=== PATIENT | female | born 1985 | race Caucasian/White ===

== ENCOUNTER 2017-02-18 13:14 | Emergency (ER) | payer OTHER ==
[2017-02-18 14:11] VITALS: BP 123/78
--- NOTE | 2017-02-18 14:31 | UC ---
Skin Complaint HPI - HPI Summary HPI Summary: red itchy rash on both arms began about 1 week ago---no known new contacts - History of Current Complaint Chief Complaint: [facility] Time Seen by Provider: 02/18/17 14:21 Stated Complaint: SKIN COMPLAINT Hx Obtained From: Patient Hx Last Menstrual Period: 02/12/17 ?: No Onset/Duration: Sudden Onset, Lasting Weeks - 1, Still Present Timing: Constant Onset Severity: Mild Current Severity: Mild Location: Discrete - both forearms, began in anticub Character: Pruritus, Redness Aggravating: Nothing Alleviating: OTC Meds - benadryl cream Associated Signs & Symptoms: Positive: Negative - Allergy/Home Medications Allergies/Adverse Reactions: Allergies Allergy/AdvReac Type Severity Reaction Status Date / Time No Known Allergies Allergy Verified 02/18/17 14:04 Home Medications: Home Medications Citalopram TAB* [Celexa TAB*] 10 mg PO DAILY 02/18/17 [History Confirmed ] Review of Systems Constitutional: Negative Skin: Rash - right and left forearm Eyes: Negative ENT: Negative Respiratory: Negative Cardiovascular: Negative Gastrointestinal: Negative Genitourinary: Negative Motor: Negative Neurovascular: Negative Musculoskeletal: Negative Neurological: Negative Psychological: Negative All Other Systems Reviewed And Are Negative: Yes PMH/Surg Hx/FS Hx/Imm Hx Previously Healthy: Yes - Surgical History Surgical History: None - Family History Known Family History: Positive: None Family History: no reported medical problems in family lineage - Social History Occupation: Unemployed Lives: With Family Alcohol Use: Rare Substance Use Type: None Smoking Status (MU): Never Smoked Tobacco - Immunization History Most Recent Influenza Vaccination: NONE Most Recent Tetanus Shot: UTD Most Recent Pneumonia Vaccination: NONE Physical Exam Triage Information Reviewed: Yes Appearance: Well-Appearing, No Pain Distress, Well-Nourished Vital Signs: Initial Vital Signs Temp 98.3 F 02/18/17 14:05 Pulse 55 02/18/17 14:05 Resp 16 02/18/17 14:05 BP 123/78 02/18/17 14:05 Pulse Ox 100 02/18/17 14:05 Vital Signs Reviewed: Yes Eye Exam: Normal Eyes: Positive: Conjunctiva Clear ENT Exam: Normal ENT: Positive: Normal ENT inspection, Hearing grossly normal. Negative: Nasal congestion, Nasal drainage, Trismus, Muffled/hoarse voice Dental Exam: Normal Neck exam: Normal Neck: Positive: Supple, Nontender, No Lymphadenopathy Respiratory Exam: Normal Respiratory: Positive: Chest non-tender, Lungs clear, Normal breath sounds, No respiratory distress, No accessory muscle use Cardiovascular Exam: Normal Cardiovascular: Positive: RRR, No Murmur, Pulses Normal, Brisk Capillary Refill Musculoskeletal Exam: Normal Musculoskeletal: Positive: Strength Intact, ROM Intact, No Edema Neurological Exam: Normal Psychological Exam: Normal Skin: Positive: rashes Course/Dx - Course Course Of Treatment: Zyrtec, benadryl, steroid cream follow with pcp - Differential Diagnoses - Skin Complaint Differential Diagnoses: Contact Dermatitis, Local Allergic Reaction - Diagnoses Provider Diagnoses: B/l fore arm contact dermititis Discharge - Discharge Plan Condition: Stable Disposition: HOME Prescriptions: Triamcinolone 0.1% CREAM (NF) [Kenalog 0.1% Cream (NF)] 1 applic TOPICAL BID # 60 gm Patient Education Materials: Diphenhydramine (By mouth), Cetirizine (By mouth) , Contact Dermatitis (ED) Referrals: СВЕТЛАНА Morton [Primary Care Provider] - If Needed
== END 2017-02-18 14:55 | disposition home or self-care (01) ==
LOC: UCCORT 13:14
DX: L25.9 Unspecified contact dermatitis, unspecified cause (principal)
CPT/HCPCS: 99202; G0463